=== PATIENT | female | born 1990 | race Caucasian/White ===

== ENCOUNTER 2023-07-09 14:09 | Emergency (ER) | payer MEDICAID ==
[~2023-07-09] VITALS: Ht 152.4 cm; Wt 81.6 kg
[2023-07-09 14:11] VITALS: BP 122/70; PULSE 93; RESP 18; TEMP 97.8; O2SAT 100
[2023-07-09] MEDS ORDERED: IBUP-2213 PO (16:01)
== END 2023-07-09 16:13 | disposition home or self-care (01) ==
LOC: MED 14:09
DX: S80.01XA Contusion of right knee, initial encounter (principal); R03.0 Elevated blood-pressure reading, without diagnosis of hypertension; E03.9 Hypothyroidism, unspecified; Z79.899 Other long term (current) drug therapy; Y08.89XA Assault by other specified means, initial encounter; Y93.89 Activity, other specified; Y92.89 Other specified places as the place of occurrence of the external cause; Y99.8 Other external cause status
CPT/HCPCS: 29505; 73562; 99283